=== PATIENT | female | born 1970 | race Two or more races ===

== ENCOUNTER 2024-03-16 17:25 | Emergency (ER) | payer MEDICAID ==
[~2024-03-16] VITALS: Ht 167.6 cm; Wt 70.7 kg
[2024-03-16 17:49] LABS: Urine Bacteria None Seen /hpf (None Seen)
[2024-03-16 18:08] LABS: Urine Blood Negative /uL (Negative); Urine Clarity Clear (Clear); Urine Color Yellow (Yellow); Urine Mucus FEW (None Seen); Urine Protein, UAD Negative (Negative); Urine Specific Gravity 1.028 (1.001-1.035); Urine Urobilinogen Normal (Negative); Urine WBC <1 /hpf (0 - 5)
[2024-03-16 18:51] VITALS: BP 143/78; PULSE 79; RESP 18; TEMP 98.4; O2SAT 100
== END 2024-03-16 19:15 | disposition home or self-care (01) ==
LOC: ER 17:33
DX: N32.9 Bladder disorder, unspecified (principal); Z88.0 Allergy status to penicillin; Z88.1 Allergy status to other antibiotic agents
CPT/HCPCS: 81001

== ENCOUNTER 2024-06-03 08:50 | Emergency (ER) | payer MEDICAID ==
[~2024-06-03] VITALS: Ht 167.6 cm; Wt 70.0 kg
[2024-06-03] MEDS ORDERED: IBUP-1454 PO (09:52)
[2024-06-03] MEDS ORDERED: HYDR-4902 PO (09:52)
[2024-06-03] MEDS: HYDROcodone-ACET 5/325MG TAB PO ONE (09:59)
[2024-06-03] MEDS ORDERED: IBUPROFEN 800 MG TAB PO ONE (10:00)
[2024-06-03] MEDS: IBUPROFEN 800 MG TAB PO ONE (10:09)
[2024-06-03 10:30] VITALS: BP 130/72; PULSE 70; RESP 18; TEMP 98.5; O2SAT 97
== END 2024-06-03 10:32 | disposition home or self-care (01) ==
LOC: ER 08:50
DX: S82.892A Other fracture of left lower leg, initial encounter for closed fracture (principal); Z88.0 Allergy status to penicillin; Z88.6 Allergy status to analgesic agent; X50.1XXA Overexertion from prolonged static or awkward postures, initial encounter; Y93.89 Activity, other specified; Y92.89 Other specified places as the place of occurrence of the external cause; Y99.8 Other external cause status
CPT/HCPCS: 29515; 73610

== ENCOUNTER 2024-12-04 17:41 | Emergency (ER) | payer MEDICAID ==
[~2024-12-04] VITALS: Ht 167.6 cm; Wt 72.3 kg
[~2024-12-04 17:41] MED LIST: HYDR-4902 PO; IBUP-1454 PO
[2024-12-04 19:09] VITALS: BP 96/56; PULSE 74; RESP 20; TEMP 99.1; O2SAT 96
[2024-12-04] MEDS ORDERED: ACET500T58 PO (19:41)
--- NOTE | 2024-12-04 19:41 | ED.PDOC ---
Musculoskeletal HPI Comments 54-YEAR-OLD FEMALE PRESENTS TO ER WITH COMPLAINTS OF LEFT KNEE PAIN X2 DAYS. PATIENT REPORTS THAT SHE WOKE UP WITH UNPROVOKED PAIN/SWELLING TO LATERAL LEFT KNEE TWO DAYS AGO. SHE RATES HER CURRENT PAIN AN 8/10 TO LEFT KNEE WITHOUT RADIATION. DENIES USE OF MEDICATIONS FOR CURRENT SYMPTOMS. PATIENT PRESENTS TO ER AMBULATORY ON ARRIVAL, FAVORING RIGHT LEG ON AMBULATION. DENIES FEVER, BODY ACHES, CHILLS, TRAUMA/FALLS, SHORTNESS OF BREATH, NUMBNESS/TINGLING OR ANY FURTHER SYMPTOMS/COMPLAINTS Chief Complaint: Lower Extremity Time Seen by MD: 18:15 Primary Care Provider: UNKNOWN Reviewed Notes: Nurses Notes, Medications, Allergies Allergies: Coded Allergies: Aspirin (Verified Allergy, Unknown, 03/16/24) Penicillins (Verified Allergy, Unknown, 03/16/24) Home Meds Active Scripts Acetaminophen (Acetaminophen) 500 Mg Tab, 500 MG PO Q4HPRN, #30 TAB 0 Refills Prov:AMERICA FISCHER 12/04/24 Ibuprofen (Ibuprofen) 600 Mg Tab, 1 TAB PO TID, #30 TAB Prov:CAROLYN JONES 06/03/24 Hydrocodone-Acetaminophen (Hydrocodone Bitartrate/AC 5-325 mg) 1 Tab Tab, 1 TAB PO Q6HPRN PRN, #20 TAB Prov:CAROLYN JONES 06/03/24 Information Source: Patient Mode of Arrival: Ambulatory Past Medical History PAST MEDICAL HISTORY: Anxiety 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 Family History Family History: Unknown Social History Smoker: Non-Smoker Alcohol: Denies ETOH Use Drugs: Denies Drug Use Lives In: Home Constitutional: denies: chills, diaphoresis, fatigue, fever, malaise, sweats, weakness, others EENTM: denies: blurred vision, double vision, ear bleeding, ear discharge, ear drainage, ear pain, ear ringing, eye pain, eye redness, hearing loss, mouth pain, mouth swelling, nasal discharge, nose bleeding, nose congestion, nose pain, photophobia, tearing, throat pain, throat swelling, voice changes, others Respiratory: denies: cough, hemoptysis, orthopnea, SOB at rest, shortness of breath, SOB with excertion, stridor, wheezing, others Cardiovascular: denies: chest pain, dizzy spells, diaphoresis, Dyspnea on exertion, edema, irregular heart beat, left arm pain, lightheadedness, palpitations, PND, syncope, others Gastrointestinal: denies: abdomen distended, abdominal pain, blood streaked bowels, constipated, diarrhea, dysphagia, difficulty swallowing, hematemesis, melena, nausea, poor appetite, poor fluid intake, rectal bleeding, rectal pain, vomiting, others Genitourinary: denies: abnormal vagina bleeding, burning, dyspareunia, dysuria, flank pain, frequency, hematuria, incontinence, pain, , vagina discharge, urgency, others Neurological: denies: dizziness, fainting, headache, left sided numbness, left sided weakness, numbness, paresthesia, pre-existing deficit, right sided numbness, right sided weakness, seizure, speech problems, tingling, tremors, weakness, others Musculoskeletal: reports: others ( STATED IN HPI) Integumetry: reports: others ( STATED IN HPI) Allergic/Immunocompromised: denies: Difficulty Healing, Frequent Infections, Hives, Itching, others Hematologic/Lymphatic: denies: anemia, blood clots, easy bleeding, easy bruising, swollen glands, others Endocrine: denies: excessive hunger, excessive sweating, excessive thirst, excessive urination, flushing, intolerance to cold, intolerance to heat, unexplained weight gain, unexplained weight loss, others Psychiatric: denies: anxiety, bipolar disorder, depression, hopeless, panic disorder, schizophrenia, sleepless, suicidal, others Physical Exam General Appearance: No Apparent Distress HEENT: PERRL/EOMI Neck: Full Range of Motion, Non-Tender, Normal Respiratory: Chest Non-Tender, Lungs Clear, No Accessory Muscle Use, No Respiratory Distress, Normal Breath Sounds Cardiovascular: No Murmur, No Gallop, Regular Rate/Rhythm Breast Exam: Deferred Gastrointestinal: NOT DONE Genitalia: Deferred Pelvic: Deferred Rectal: Deferred Extremities: Normal capillary refill, Normal range of motion Musculoskeletal : Extremity Location: Knee (TTP/MILD SWELLING NOTED TO LEFT PROXIMAL FIBULA/LEFT UPPER CALF. NO FURTHER SKIN CHANGES NOTED. NEGATIVE ANTERIOR DRAWER TEST LEFT KNEE. NEGATIVE RIKI'S TEST LEFT KNEE. PULSES INTACT. PATIENT FAVORS RIGHT LEG ON AMBULATION DUE TO PAIN LOCALIZED TO LEFT PROXIMAL FIBULA/LEFT UPPER CALF) Neurologic: Alert, medical claims processor II-XII nml as Tested, No Motor Deficits, Normal Affect, Normal Mood, No Sensory Deficits Cerebellar Function: Normal Reflexes: Normal Skin: Dry, Normal Color, Warm Peripheral Pulses: 2+ femoral (R), 2+ femoral (L), 2+ dorsalis pedis (R), 2+ dorsalis pedis (L) Lymphatic: No Adenopathy Was a procedure done? Was a procedure done?: No Sedation Sedation?: No Differential Diagnosis EXT Differential Diagnosis: Deep Vein Thrombosis, Fracture, Dislocation, Neurovascular injury X-Ray, Labs, Meds, VS Vital Signs Date Time Temp Pulse Resp B/P (MAP) Pulse Ox O2 Delivery O2 Flow Rate FiO2 12/04/24 19:09 99.1 74 20 96/56 (69) 96 99.1 12/04/24 19:09 74 20 96 Room Air 12/04/24 18:20 99.1 74 20 96/56 (69) 96 Current Medications Medications (Trade) Dose Ordered Sig/Salud Route Start Time Stop Time Status Last Admin Ondansetron HCl (Zofran Po) 4 mg ONCE ONCE PO 12/04/24 20:30 12/04/24 20:31 DC 12/04/24 20:32 PATIENT: SOFIE MILNERT: [id number]: [id number] : 1970 LOC: ER ROOM / BED: / AGE / SEX: 54 / F ADM STATUS: REG ER SERVICE 35 ORDERING PHYSICIAN: AMERICA FISCHER PROCEDURE(s): LLDVT - LT Lower DVT REASON: LEFT LEG PAIN ORDER NUMBER(s): [id number], ACCESSION NUMBER(s): [id number] Left lower extremity venous duplex Clinical History: LEFT LEG PAIN Comparison: None Technique: Duplex Doppler evaluation of the deep venous system of the left lower extremity from the common femoral vein to the popliteal vein including color Doppler and spectral/pulsed waveform analysis was performed. Findings: The common femoral vein demonstrates appropriate compressibility and waveform variability. There is compressibility/patency of the great saphenous vein at the proximal thigh. The femoral vein demonstrates appropriate compressibility and waveform variability. The deep femoral vein demonstrates appropriate compressibility and waveform variability. The popliteal vein demonstrates appropriate compressibility and waveform variability. There is normal compressibility at the tibioperoneal trunk. Impression: No evidence of left femoropopliteal venous thrombosis. ATED BY: VISHAL DOVE MD DICTATED DATE/TIME: 12/04/242053 SIGNED BY: VISHAL DOVE MD SIGNED DATE/TIME: 12/04/242053 CC: PATIENT: JARVIS MILNER ACCT: [id number] UNIT: [id number] : 1970 LOC: ER ROOM / BED: / AGE / SEX: 54 / F ADM STATUS: REG ER SERVICE 35 ORDERING PHYSICIAN: AMERICA FISCHER PROCEDURE(s): LKNE3 - L KNEE 3V XRAY REASON: LEFT KNEE PAIN ORDER NUMBER(s): [id number], ACCESSION NUMBER(s): [id number] CLINICAL INDICATION: LEFT KNEE PAIN TECHNIQUE: 3 radiographic views of the left knee were obtained. Comparison: None FINDINGS/IMPRESSION: There is no evidence of acute fracture or dislocation. The visualized joint space is well maintained. The alignment is anatomical. There is no radiopaque foreign body. ATED BY: ELLEN STOLL Jr., DO DICTATED DATE/TIME: 12/04/242013 SIGNED BY: ELLEN STOLL Jr., DO SIGNED DATE/TIME: 12/04/242013 CC: TYLENOL 650 MG P.O. ORDERED VENUS WRAP APPLIED LEFT KNEE X-RAY REVIEWED LEFT LOWER DVT ULTRASOUND REVIEWED NEUROVASCULARLY INTACT AND REPORTED IMPROVEMENT IN SYMPTOMS PRIOR TO DISCHARGE ADVISED ON REST/NO STRENUOUS ACTIVITY, ELEVATION AND ALTERNATE ICE ON/OFF NEEDED FOR PAIN/SWELLING ADVISED TO FOLLOW UP WITH PCP AND ORTHOPEDICS IN 1-2 DAYS PATIENT VERBALIZED UNDERSTANDING AND AGREEABLE WITH CURRENT PLAN OF CARE ADVISED TO RETURN TO ER IMMEDIATELY IF SYMPTOMS WORSEN Images Reviewed?: Images reviewed and evaluated by me Time of 1ST Reevaluation: 19:12 Reevaluation 1ST: N/A Patient Education/Counseling: Diagnosis, Treatment, Prognosis, Need For Follow Up Family Education/Counseling: No Family Present Departure 1 Departure Time of Disposition: 19:32 Impression: Primary Impression: Left knee sprain Qualified Codes: S83.92XA - Sprain of unspecified site of left knee, initial encounter Disposition: HOME / SELF CARE / HOMELESS Condition: Stable e-Prescriptions Acetaminophen (Acetaminophen) 500 Mg Tab 500 MG PO Q4HPRN, #30 TAB 0 Refills Prov: AMERICA FISCHER 12/04/24 Discharged With: Self Critical Care Note Critical Care Time?: No Stability Stability form required: No Heart Score Heart Score: Heart Score Response (Comments) Value History N/A 0 EKG N/A 0 Age N/A 0 Risk Factors N/A 0 Troponin N/A 0 Total 0 AMERICA FISCHER Dec 04, 2024 19:41
[2024-12-04] MEDS: HYDROcodone-ACET 5/325MG TAB PO ONE (19:45)
[2024-12-04] MEDS: ONDANSETRON ODT 4 MG TAB PO ONE ×2 (19:45→20:32)
--- NOTE | 2024-12-04 20:16 | DVH ---
CLINICAL INDICATION: LEFT KNEE PAIN TECHNIQUE: 3 radiographic views of the left knee were obtained. Comparison: None FINDINGS/IMPRESSION: There is no evidence of acute fracture or dislocation. The visualized joint space is well maintained. The alignment is anatomical. There is no radiopaque foreign body.
--- NOTE | 2024-12-04 20:56 | DVH ---
Left lower extremity venous duplex Clinical History: LEFT LEG PAIN Comparison: None Technique: Duplex Doppler evaluation of the deep venous system of the left lower extremity from the common femor al vein to the popliteal vein including color Doppler and spectral/pulsed waveform analysis was perfo rmed. Findings: The common femoral vein demonstrates appropriate compressibility and waveform variability. There is compressibility/patency of the great saphenous vein at the proximal thigh. The femoral vein demonstrates appropriate compressibility and waveform variability. The deep femoral vein demonstrates appropriate compressibility and waveform variability. The popliteal vein demonstrates appropriate compressibility and waveform variability. There is normal compressibility at the tibioperoneal trunk. Impression: No evidence of left femoropopliteal venous thrombosis.
[2024-12-04] MEDS: ACETAMINOPHEN 325 MG TAB PO ONE (21:16)
== END 2024-12-04 21:24 | disposition home or self-care (01) ==
LOC: ER 17:41
DX: S83.92XA Sprain of unspecified site of left knee, initial encounter (principal); F41.9 Anxiety disorder, unspecified; X58.XXXA Exposure to other specified factors, initial encounter; Y93.89 Activity, other specified; Y92.89 Other specified places as the place of occurrence of the external cause; Y99.8 Other external cause status; Z88.0 Allergy status to penicillin; Z88.6 Allergy status to analgesic agent; Z79.1 Long term (current) use of non-steroidal anti-inflammatories (NSAID)
CPT/HCPCS: 73562; 93971; 99284; Q0162

== ENCOUNTER 2024-12-23 07:05 | Emergency (ER) | payer MEDICAID ==
[~2024-12-23] VITALS: Ht 167.6 cm; Wt 73.6 kg
[~2024-12-23 07:05] MED LIST changes: +ACET500T58 PO
[2024-12-23 07:37] VITALS: BP 145/90; PULSE 78; RESP 16; TEMP 98.2; O2SAT 100
[2024-12-23 07:53] LABS: Urine Bacteria FEW /hpf (None Seen); Urine Blood 2+ /uL (Negative); Urine Color Light-Yellow (Yellow); Urine Protein, UAD Negative (Negative); Urine Specific Gravity 1.017 (1.001-1.035); Urine Squamous Epithelial Cell FEW /hpf (<5); Urine Urobilinogen Normal (Negative); Urine WBC 75 /HPF (0-5)
[2024-12-23 07:54] LABS: Urine Clarity Hazy (Clear)
[2024-12-23] MEDS ORDERED: NITR-87 PO (07:57)
--- NOTE | 2024-12-23 07:57 | ED.PDOC ---
General HPI Comments 54-year-old female with no pertinent MHx presents for a possible UTI x1 day. Complains of a discomfort to the suprapubic region that started this morning. No other complaint or concern. Chief Complaint: Urinary Time Seen by MD: 07:29 Primary Care Provider: UNKNOWN Reviewed notes: Nurses Notes, Medications, Allergies Allergies: Coded Allergies: Aspirin (Verified Allergy, Unknown, 03/16/24) Penicillins (Verified Allergy, Unknown, 03/16/24) Home Meds Active Scripts Phenazopyridine Hcl (EQ URINARY PAIN RELIEF) 95 Mg Tab, 95 MG OR TID for 2 Days, #6 TAB 0 Refills Prov:SHARLA FREITAS STAFF MECHANICAL ENGINEER 12/23/24 Nitrofurantoin Monohydrate Mac (Macrobid) 100 Mg Cap, 100 MG PO BID for 7 Days, #14 CAP 0 Refills Prov:SHARLA FREITAS STAFF MECHANICAL ENGINEER 12/23/24 Acetaminophen (Acetaminophen) 500 Mg Tab, 500 MG PO Q4HPRN, #30 TAB 0 Refills Prov:AMERICA FISCHER 12/04/24 Ibuprofen (Ibuprofen) 600 Mg Tab, 1 TAB PO TID, #30 TAB Prov:CAROLYN JONES PAC 06/03/24 Hydrocodone-Acetaminophen (Hydrocodone Bitartrate/AC 5-325 mg) 1 Tab Tab, 1 TAB PO Q6HPRN PRN, #20 TAB Prov:CAROLYN JONES PAC 06/03/24 Information Source: Patient Mode of Arrival: Ambulatory Past Medical History PAST MEDICAL HISTORY: Anxiety 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 Family History Family History: Unknown Social History Smoker: Non-Smoker Alcohol: Denies ETOH Use Drugs: Denies Drug Use Lives In: Home All Other Systems: Reviewed and Negative (Per HPI) Physical Exam General Appearance: No Apparent Distress, Normal HEENT: Normal ENT Inspection, Pharynx Normal, TMs Normal Neck: Full Range of Motion, Non-Tender, Normal, Normal Inspection Respiratory: Chest Non-Tender, Lungs Clear, No Accessory Muscle Use, No Respiratory Distress, Normal Breath Sounds Cardiovascular: No Edema, No JVD, No Murmur, No Gallop, Regular Rate/Rhythm Breast Exam: Deferred Gastrointestinal: No Pulsatile Mass, Normal Bowel Sounds, Soft Genitalia: Deferred Pelvic: Deferred Rectal: Deferred Extremities: No calf tenderness, Normal capillary refill, Normal inspection, Normal range of motion, Non-tender, No pedal edema Musculoskeletal : Apperance: Normal Neurologic: Alert, No Motor Deficits, Normal Affect, Normal Mood, No Sensory Deficits Cerebellar Function: Normal Reflexes: Normal Skin: Dry, Normal Color, Warm Lymphatic: No Adenopathy Was a procedure done? Was a procedure done?: No Differential Diagnosis Kidney stone (Female): Other X-Ray, Labs, Meds, VS Vital Signs Date Time Temp Pulse Resp B/P (MAP) Pulse Ox O2 Delivery O2 Flow Rate FiO2 12/23/24 07:37 78 16 100 Room Air 12/23/24 07:37 98.2 78 16 145/90 (108) 100 98.2 12/23/24 07:24 98.2 78 16 145/90 (108) 100 98.2 Lab Test 12/23/24 07:15 Range/Units Urine Color Light-yellow Yellow Urine Clarity Hazy H Clear Urine pH 5.0 5.0-9.0 Urine Specific [place] 1.017 1.001-1.035 Urine Protein Negative Negative Urine Ketones Negative Negative Urine Blood 2+ H Negative /uL Urine Nitrite Negative Negative Urine Bilirubin Negative Negative Urine Urobilinogen Normal Negative mg/dL Urine Leukocyte Esterase 3+ Negative /uL Urine RBC 9 0 - 4 /hpf Urine Microscopic WBC 75 H 0-5 /HPF Urine Squamous Epithelial Cells Few <5 /hpf Urine Bacteria Few H None Seen /hpf Urine Glucose Normal Normal mg/dL X-Ray, Labs, Meds, VS Comment History and lab findings consistent with UTI Vital signs stable patient stable Patient tolerating p.o. fluids Encouraged parents to increase water intake Practice good personal hygiene. Always wipe from front to back Drink plenty of fluids to help flush bacteria out of the urinary tract Empty bladder completely as soon as you feel the urge Empty bladder after intercourse Prescribed p.o. antibiotics for presentation of symptoms Complete course of antibiotic therapy even if symptoms improve or resolve. There should be no leftover antibiotics as this can lead to antibiotic resistant bacteria and even worse infection. Parents verbalized understanding. Potential side effects discussed with patient including abdominal pain, nausea, diarrhea. Time of 1ST Reevaluation: 07:45 Reevaluation 1ST: Improved Patient Education/Counseling: Diagnosis, Treatment Family Education/Counseling: Diagnosis, Treatment Departure 1 Departure Time of Disposition: 07:56 Impression: Primary Impression: UTI (urinary tract infection) Qualified Codes: N30.00 - Acute cystitis without hematuria Disposition: HOME / SELF CARE / HOMELESS Condition: Stable e-Prescriptions Phenazopyridine Hcl (EQ URINARY PAIN RELIEF) 95 Mg Tab 95 MG OR TID for 2 Days, #6 TAB 0 Refills Prov: SHARLA FREITAS NP 12/23/24 Nitrofurantoin Monohydrate Mac (Macrobid) 100 Mg Cap 100 MG PO BID for 7 Days, #14 CAP 0 Refills Prov: SHARLA FREITAS NP 12/23/24 Critical Care Note Critical Care Time?: No Stability Stability form required: No Heart Score Heart Score: Heart Score Response (Comments) Value History N/A 0 EKG N/A 0 Age N/A 0 Risk Factors N/A 0 Troponin N/A 0 Total 0 SHARLA FREITAS NP Dec 23, 2024 07:57
[2024-12-23] MEDS ORDERED: PHEN95TA17 OR (08:02)
== END 2024-12-23 08:01 | disposition home or self-care (01) ==
LOC: ER 07:05
DX: N39.0 Urinary tract infection, site not specified (principal); Z79.1 Long term (current) use of non-steroidal anti-inflammatories (NSAID); Z79.899 Other long term (current) drug therapy; Z88.0 Allergy status to penicillin; Z88.6 Allergy status to analgesic agent
CPT/HCPCS: 81001

== ENCOUNTER 2025-08-12 01:21 | Emergency (ER) | payer MEDICAID ==
[~2025-08-12] VITALS: Ht 165.1 cm; Wt 72.7 kg
[~2025-08-12 01:21] MED LIST changes: +NITR-87 PO; +PHEN95TA17 OR
--- NOTE | 2025-08-12 01:49 | ED.PDOC ---
History of Present Illness HPI Comments 55-year-old female who came to ER for urinary issues. Patient has been having recurrent episodes of UTI since last month. Has been treated with several antibiotics, currently on levofloxacin. Patient is still with suprapubic abdominal pain, urinary frequency and urgency. Patient as he had to see OB jack prizer regarding these issues REVIEW OF SYSTEMS: General: No fever, no chills, or fatigue HEENT: No sore throat, no earache, no congestion, no neck pain. Cardiac: No chest pain. No palpitations. Lungs: No shortness of breath, no cough. GI: No nausea, no vomiting, no diarrhea, no constipation, (+) abdominal pain : No dysuria, (+)frequency, (+) urgency. No hematuria. Musculoskeletal: No joint pain , no joint swelling, no extremity edema. Skin: No rash, no itching. Neuro: No headache, no dizziness, no weakness PHYSICAL EXAM: General: Awake, alert and oriented. No acute distress. Skin: Skin in warm, dry and intact without rashes or lesions. HEENT: The head is normocephalic and atraumatic. Conjunctivae are clear without exudates or hemorrhage. Sclera is non-icteric. Neck: Normal range of motion. No JVD. Cardiac: Regular rate Respiratory: No signs of respiratory distress. No Stridor. Abdominal: No CVA tenderness. Mild suprapubic fullness. No tenderness. Extremities: Upper and lower extremities are atraumatic in appearance without deformity. Neurological: The patient is awake, alert and oriented to person, place, and time with normal speech. Speech is clear. There is no facial asymmetry. Psychiatric: Appropriate mood and affect. Good judgement and insight. Chief Complaint: Urinary Time Seen by MD: 01:48 Primary Care Provider: UNKNOWN Reviewed Notes: Nurses Notes Allergies: Coded Allergies: Aspirin (Verified Allergy, Unknown, 03/16/24) Penicillins (Verified Allergy, Unknown, 03/16/24) Home Meds Active Scripts Phenazopyridine Hcl (EQ URINARY PAIN RELIEF) 95 Mg Tab, 95 MG OR TID for 2 Days, #6 TAB 0 Refills Prov:SHARLA FREITAS CIRCULATION CLERK 12/23/24 Nitrofurantoin Monohydrate Mac (Macrobid) 100 Mg Cap, 100 MG PO BID for 7 Days, #14 CAP 0 Refills Prov:SHARLA FREITAS CIRCULATION CLERK 12/23/24 Acetaminophen (Acetaminophen) 500 Mg Tab, 500 MG PO Q4HPRN, #30 TAB 0 Refills Prov:AMERICA FISCHER 12/04/24 Ibuprofen (Ibuprofen) 600 Mg Tab, 1 TAB PO TID, #30 TAB Prov:CAROLYN JONES PAC 06/03/24 Hydrocodone-Acetaminophen (Hydrocodone Bitartrate/AC 5-325 mg) 1 Tab Tab, 1 TAB PO Q6HPRN PRN, #20 TAB Prov:CAROLYN JONES PAC 06/03/24 Information Source: Patient Mode of Arrival: Ambulatory Past Medical History PAST MEDICAL HISTORY: Anxiety, 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 Was a procedure done?: No Differential Dx Considerations may include: Urinary tract infection, pyelonephritis X-Ray, Labs, Meds, VS Vital Signs Date Time Temp Pulse Resp B/P (MAP) Pulse Ox O2 Delivery O2 Flow Rate FiO2 08/12/25 03:59 98.3 68 12 142/78 (99) 99 98.3 08/12/25 01:24 98.0 72 16 143/80 99 98.0 Lab Test 08/12/25 01:45 Range/Units Urine Color Dark-yellow Yellow Urine Clarity Clear Clear Urine pH 6.5 5.0-9.0 Urine Specific [place] 1.011 1.001-1.035 Urine Protein Negative Negative Urine Ketones Negative Negative Urine Blood Negative Negative /uL Urine Nitrite 1+ H Negative Urine Bilirubin 1+ H Negative Urine Urobilinogen 2 H Negative mg/dL Urine Leukocyte Esterase Negative Negative /uL Urine RBC 1 0 - 4 /hpf Urine Microscopic WBC < 1 0-5 /HPF Urine Squamous Epithelial Cells None seen <5 /hpf Urine Bacteria None seen None Seen /hpf Urine Glucose Normal Normal mg/dL Time of 1ST Reevaluation: 01:46 Reevaluation 1ST: Unchanged Patient Education/Counseling: Need For Follow Up Family Education/Counseling: No Family Present SEPSIS Sepsis Screen Date sepsis recognized/suspect: Aug 12, 2025 Time Sepsis recognized/suspect: 0126 Recent Procedure: No On Antibiotic Therapy: No Respiratory Rate >20: No Heart Rate >90: No Temp<36 C (96.8 F) or >38.3 C: No SBP <90 or MAP <65 mmHG: No New Acute Mental Status Change: No Is the patient on CPAP, BIPAP,: No Vital Signs Date Time Temp Pulse Resp B/P (MAP) Pulse Ox O2 Delivery O2 Flow Rate FiO2 08/12/25 03:59 98.3 68 12 142/78 (99) 99 98.3 08/12/25 01:24 98.0 72 16 143/80 99 98.0 Departure 1 Departure Time of Disposition: 04:04 Impression: Primary Impression: Lower urinary tract symptoms Disposition: HOME / SELF CARE / HOMELESS Condition: Stable Additional Instructions: ED DISCHARGE INSTRUCTIONS Instructions: Please read all instructions provided in this packet carefully. Although you have been discharged from the Emergency Department, this does not mean that you have a "clean bill of health". No definitive diagnosis for your symptoms has been made today. It is possible that you are in the process of developing a serious illness. This is why you must return to the ED without fail if any new or worsening symptoms (especially if your symptoms include chest pain, trouble breathing, abdominal pain, fever, headache, confusion, trouble seeing, or trouble walking) It is also very important that you see a primary care provider (PCP) within the next 3-5 days to follow up. If you are unable to get an appointment, return to the ED for re-evaluation. Comments Patient well-appearing, nontoxic. Advised prompt follow-up with PCP, return to the ED with any new, worsening or concerning symptoms. Critical Care Note Critical Care Time?: No Stability Stability form required: No Heart Score Heart Score: Heart Score Response (Comments) Value History N/A 0 EKG N/A 0 Age N/A 0 Risk Factors N/A 0 Troponin N/A 0 Total 0 I personally scribed for COCO DOTSON MD ([email or web address]) on 08/12/25 at 01:49. Electronically submitted by Min Tran ([email or web address]). COCO DOTSON MD Aug 12, 2025 01:49
[2025-08-12 02:45] LABS: Urine Protein, UAD Negative (Negative)
[2025-08-12 03:59] VITALS: BP 142/78; PULSE 68; RESP 12; TEMP 98.3; O2SAT 99
== END 2025-08-12 04:12 | disposition home or self-care (01) ==
LOC: ER 01:21
DX: N39.9 Disorder of urinary system, unspecified (principal); Z88.6 Allergy status to analgesic agent; Z88.0 Allergy status to penicillin
CPT/HCPCS: 81001